=== PATIENT | female | born 1950 | race Caucasian/White ===

== ENCOUNTER 2016-04-21 12:14 | Day surgery (SDC) | payer BC ==
[~2016-04-21 12:14] MED LIST: ALIGN4 MG PO; AMB10 PO; BENICAR HCT1 TA1 PO; BENICAR PO; CALTRA600D PO; FLAGYL250 MG PO; LEVAQUIN750 MG PO; LIPITOR20 PO; MAGOX4 PO; POTASSIUM OTC PO; PREV30 PO; PRINZIDE1 TAB PO; PROTONIX PO; T PO; THERGRANM PO; ULTRAM50 PO; VITC500 PO; ZANTAC150 MG PO; ZOCOR20 PO; ZYRTEC ALLGY10 MG PO
[2016-06-03] MEDS ORDERED: PROBIOTIC PO (11:10)
== END 2016-04-21 23:59 | disposition home or self-care (01) ==
LOC: DMU 12:14
PROVIDERS: Internal Medicine Gastroenterology
PROC: 4A0B78Z Measurement of Gastrointestinal Motility, Via Natural or Artificial Opening (ICD-10-PCS; principal; 2016-04-21 12:30)
DX: R13.10 Dysphagia, unspecified (principal); K21.9 Gastro-esophageal reflux disease without esophagitis; I10 Essential (primary) hypertension; Z88.0 Allergy status to penicillin
CPT/HCPCS: A9270-GY; C1894

== ENCOUNTER 2016-06-10 04:28 | Observation (INO) | payer BC ==
[2016-06-03 17:35] LABS: BASOPHILS 0.1 %; BASOPHILS ABSOLUTE 0.01 10/3/uL (0.0-0.16); EOSINOPHILS 0.6 %; EOSINOPHILS ABSOLUTE 0.04 10/3/uL (0.0-0.53); IMMATURE GRANULOCYTES 0.4 %; IMMATURE GRANULOCYTES ABSOLUTE 0.03 10/3/uL (0.0-0.11); LYMPHOCYTES 24.9 %; LYMPHOCYTES ABSOLUTE 1.68 10/3/uL (0.67-4.30); MANUAL DIFF NO %; MEAN CORPUSCULAR HEMOGLOB 32.8 pg (26.0-34.0); MEAN CORPUSCULAR VOLUME 93.7 fL (80-100); MONOCYTES 7.4 %; NEUTROPHILS 66.6 %; NEUTROPHILS ABSOLUTE 4.48 10/3/uL (2.02-8.40); PLATELET COUNT 222 10/3/uL (150-400); RBC DISTRIBUTION WIDTH 12.9 % (12.0-16.0); RED CELL COUNT 4.27 10/6/uL (4.0-5.6); WHITE BLOOD CELLS 6.7 10/3/uL (4.5-10.5)
[2016-06-03 17:41] LABS: CHLORIDE, SERUM 96 MMOL/L (96-112); CREATININE 0.94 MG/DL (0.55-1.02); GFR AFRICAN AMERICAN 74 ML/MIN (>=60); GFR NON AFRICAN AMERICAN 64 ML/MIN (>=60); POTASSIUM, SERUM 3.5 MMOL/L (3.5-5.3); SODIUM, SERUM 134 MMOL/L (135-148)
[2016-06-03 17:42] LABS: BUN (BLOOD UREA NITROGEN) 17 MG/DL (6-23); CALCIUM, SERUM 9.8 MG/DL (8.5-10.4); CO2 (CARBON DIOXIDE) 29 MMOL/L (24-34); GLUCOSE, SERUM 104 MG/DL (60-99)
--- NOTE | ~2016-06-10 | OP ---
Record Of Operation [facility] [address] [place]. [address] NAME: ALPA HANCOCK : 54 STATUS : REG [facility] [place] PAT#: [id number] AGE: 66 ADM/REG DATE : 06/10/16 MR#: [id number] REPORT SERV DATE: 06/10/16 DICTATED BY: DARIN GONCALVES DATE: 06/10/16 REPORT STATUS : Draft TRANSCRIBED BY: MODL DATE: 06/10/16 DATE OF PROCEDURE: 06/10/2016 PREOPERATIVE DIAGNOSES: 1. Hiatal hernia. 2. Gastroesophageal reflux disease. POSTOPERATIVE DIAGNOSES: 1. Hiatal hernia. 2. Gastroesophageal reflux disease. OPERATION PERFORMED: Laparoscopic Yandel fundoplication. SURGEON: Darin Goncalves M.D. TOWEL SEWER: Dejon Navarro MD. ESTIMATED BLOOD LOSS: Less than 10 mL. IV FLUIDS: Adequate. INDICATION FOR PROCEDURE: Ms Hancock is a 66-year-old white female with refractory gastroesophageal reflux disease. She is brought to the operating room today for a laparoscopic Yandel fundoplication. Full risks and benefits of the procedure were discussed in detail and are outlined on her admission H and P. INTRAOPERATIVE FINDINGS: Sliding hiatal hernia, moderate-sized. DESCRIPTION OF OPERATION: After appropriate sedation, the patient was prepped and draped in proper sterile fashion. A 10-mm Optiview trocar was used to enter the abdomen just above and to the left of the umbilicus. The abdomen was then insufflated to 15 mmHg. We then placed a right lateral 5-mm trocar, a midline 5-mm trocar, and a 10-mm left midclavicular, and a left anterior axillary 5-mm trocar were all placed under direct visualization after obtaining local anesthesia in a standard fashion. A liver retractor was placed in the lateral aspect of the left lobe of the liver. It was elevated against the diaphragm. This demonstrated a moderate-sized hiatal hernia. Using the Harmonic scalpel, we opened up the gastrohepatic attachments. The right laura of the diaphragm was well-visualized. We then dissected posterior to the esophagus, and we were able to see the left laura of the diaphragm. We then dissected anteriorly along the esophagus till we got to the left side. We then grasped the stomach and brought it medially. The short gastric vessels were taken down using the Harmonic Scalpel up to the level of the left laura of the diaphragm. It should be noted these were relatively close to the spleen, and there were some what looked to be either congenital or old inflammatory reaction around the spleen that was taken out. These adhesions were taken down using the Harmonic scalpel. We then, at this point, had the esophagus fully dissected out. The anterior and posterior vagus nerves were visualized. A Kinderhook drain was then placed around the gastroesophageal junction. It was then elevated. Record Of Operation [facility] [address] [place]. [address] NAME: ALPA HANCOCK : 54 STATUS : REG [facility] PAT#: [id number] AGE: 66 ADM/REG DATE : 06/10/16 MR#: [id number] REPORT SERV DATE: 06/10/16 DICTATED BY: DARIN GONCALVES DATE: 06/10/16 REPORT STATUS : Draft TRANSCRIBED BY: TREVIN DATE: 06/10/16 We then closed the hiatus using 0 Ethibond sutures. This approximated the crura nicely around the esophagus. We then brought the fundus of the stomach posterior. Came easily behind the esophagus. We shoe-shined the stomach showing no evidence of twisting. We then turned our attention towards the fundoplication. The fundus of the stomach was sutured to the anterior esophagus staying away from the anterior vagus nerve. The anterior wall of the stomach was then sutured to the fundus using 2-0 Ethibond suture. We then placed two sutures inferior to this with the fundus to the anterior portion of the stomach using 2-0 Ethibond sutures, stays in good fundoplication. It was noted to be not very tight and floppy. At this point, we evaluated our hiatus again, the GE junction was well below the hiatus, and the hiatus was relatively tight around the esophagus. We then removed our snake retractor along the left lobe of the liver to fall down. Removed the remaining trocars under direct visualization. There was no evidence of bleeding from the abdominal wall. The abdomen was then desufflated. The skin was closed using interrupted 3-0 Vicryl sutures. Steri-Strips and dressings were then placed. The patient was taken to the recovery room in satisfactory condition. KANIKA/TREVIN Darin Goncalves M.D. / [id number] CC: Gayatri Estrella M.D.
[~2016-06-10 04:28] MED LIST changes: +PROBIOTIC PO
[2016-06-11] MEDS ORDERED: NORCO1 TA1 PO (09:13)
[2016-06-11] MEDS ORDERED: PR25 PO (09:16)
== END 2016-06-11 11:31 | disposition home or self-care (01) ==
LOC: SDC 04:28 → 5SO 13:50
PROVIDERS: Specialist
PROC: 0DV44ZZ Restriction of Esophagogastric Junction, Percutaneous Endoscopic Approach (ICD-10-PCS; principal; 2016-06-10 05:45)
DX: K44.9 Diaphragmatic hernia without obstruction or gangrene (principal); K21.9 Gastro-esophageal reflux disease without esophagitis; E78.5 Hyperlipidemia, unspecified; I10 Essential (primary) hypertension; G47.30 Sleep apnea, unspecified; Z90.710 Acquired absence of both cervix and uterus; Z98.890 Other specified postprocedural states; Z88.0 Allergy status to penicillin; Z87.891 Personal history of nicotine dependence
CPT/HCPCS: 80048; 85025; 93005; 96372; 96374; 96375; A9270-GY; G0378; J0330; J1170; J1580; J1885; J2250; J2270; J2405; J2710; J3010